=== PATIENT | male | born 1940 | race Caucasian/White ===

== ENCOUNTER → 2022-07-02 12:51 | Outpatient (CLI) | payer MEDICARE, OTHER, SELFPAY ==
--- NOTE | 2022-07-02 12:56 | DI.US.S_ITS ---
PROCEDURE: US RENAL COMPLETE INDICATIONS: Gross hematuria TECHNIQUE: Real-time scanning was performed of the kidneys and bladder, with image documentation. COMPARISON: None. FINDINGS: Kidneys: Kidneys are normal in size. Right kidney measures 12.8 cm long; left kidney measures 13.3 cm long. Right renal cortical thickness is 2.0 cm; left renal cortical thickness is 1.8 cm. Renal cortical echotexture is normal. No hydronephrosis or nephrolithiasis. No suspicious solid mass lesions. Bladder: Pre-void bladder volume is 82 mL. Post-void residual is 0 mL. Pre-void images demonstrate no intraluminal masses or stones. On pre-void images, bilateral ureteral jets are noted with color Doppler interrogation. (Of note, ureteral jets may not be detectable in up to 25% of cases due to insufficient differences in specific gravity between ureteral and bladder urine). Miscellaneous: No free pelvic fluid. IMPRESSION: No hydronephrosis or nephrolithiasis. No postvoid residual. Dictated by: Sofia Rosales M.D. on 07/02/2022 at 14:58 Approved by: Sofia Rosales M.D. on 07/02/2022 at 14:58
== END ==
PROVIDERS: PCP Family Medicine; Referring Provider Nurse Practitioner Family; Visit Provider Nurse Practitioner Family
DX: R31.0 Gross hematuria (principal)
CPT/HCPCS: 76770

== ENCOUNTER → 2022-08-07 13:16 | Outpatient (CLI) | payer MEDICARE, OTHER, SELFPAY ==
--- NOTE | 2022-08-07 | DI.CT.S_ITS ---
PROCEDURE: CT IVP A/P W/WO INDICATIONS: GROSS HEMATURA TECHNIQUE: Optional 5 mm thick noncontrast images acquired from the diaphragm to the symphysis pubis. After the administration of intravenous contrast, 5 mm thick images acquired from the diaphragm to the symphysis pubis after a 10-minute delay. 2 mm thick coronal and sagittal reformats were then performed of the kidneys and ureters. For radiation dose reduction, the following was used: automated exposure control, adjustment of mA and/or kV according to patient size. COMPARISON: [facility], CT, CT ABD PELVIS W CON, 02/27/2016, 11:16. FINDINGS: Image quality: Excellent. Lung bases: Lung bases are clear. The heart is enlarged. Pacemaker lead is noted. Urinary system: Both kidneys are normal in size, without hydronephrosis or nephrolithiasis on pre-contrast images. No perinephric fat stranding. There is normal bilateral renal enhancement. Renal calyces appear normal in morphology when filled with contrast. Opacified portions of both ureters demonstrate normal caliber. Bladder is mildly underdistended even on delayed images. There is mild fat stranding anterior to the bladder. No calcified bladder stones. Other solid organs: Suspected subtle nodularity of the liver surface. A recanalized periumbilical vein is noted. Gallbladder is filled with sludge and multiple calculi. There appears to be mild gallbladder wall thickening and mild pericholecystic fluid. Biliary system is non dilated. Pancreas enhances normally. Spleen is normal in size. A 1 cm hypoattenuating lesion in the spleen is most likely benign. Mild nodular thickening of the adrenals without a definite focal adrenal nodule. Peritoneum and bowel: Moderate stool is seen in the colon and rectum. Numerous diverticula are seen throughout the colon without signs of acute diverticulitis. Small bowel loops are unremarkable. No pneumoperitoneum. Trace ascites is seen adjacent to the liver and in the pelvic cul-de-sac. Nodes and vessels: No retroperitoneal or mesenteric adenopathy by size criteria. Aorta and inferior vena cava are normal in size. Abdominal wall: No ventral hernias. Pelvis: Fiducial markers are noted in the prostate. No pathologic free pelvic fluid. No inguinal hernias or adenopathy. Bones: No suspicious bony lesions. No vertebral body compression fractures. Multilevel degenerative changes are seen in the spine as well as the sacroiliac joints, hips, and pubic symphysis. Old healed right-sided rib fractures. IMPRESSION: 1. No nephrolithiasis or hydronephrosis. No urothelial mass. 2. Subtle fat stranding adjacent to the anterior bladder is nonspecific but could indicate mild cystitis. 3. Cholelithiasis with mild bladder wall thickening and small amount of pericholecystic fluid, possibly related to liver disease but acute sulcal status is not excluded. Recommend correlation with clinical findings and laboratory values. 4. Subtle nodularity of the liver surface is suspicious for cirrhosis. Small recanalized periumbilical vein is present. There is trace abdominal ascites. 5. Extensive colonic diverticulosis without signs of acute diverticulitis. Moderate colonic stool. 6. Cardiomegaly. Approved by: Willy Cervantes M.D. on 08/07/2022 at 20:41
[2022-08-07 13:40] LABS: Estimated Glomerular Filt Rate > 60 mL/min (>60)
== END ==
PROVIDERS: Radiology Diagnostic Radiology; PCP Family Medicine; Referring Provider Urology; Visit Provider Urology
DX: R31.0 Gross hematuria (principal); R25.1 Tremor, unspecified; I51.7 Cardiomegaly; K80.20 Calculus of gallbladder without cholecystitis without obstruction; K57.90 Diverticulosis of intestine, part unspecified, without perforation or abscess without bleeding; Z87.898 Personal history of other specified conditions
CPT/HCPCS: 36415; 74178; 82565; Q9967

== ENCOUNTER → 2024-04-22 13:17 | Outpatient (CLI) | payer MEDICARE, OTHER, SELFPAY ==
--- NOTE | 2024-04-22 13:20 | DI.ECHO.S_ITS ---
[facility] : : [id number] : : [place] : : [id number] : : Phone: [phone] Echocardiogram Report + + :Name: HUANG BROWNE Study Date: 04/22/2024 Height: 70 in : :[facility] ReadingLocation: Weight: 210 lb : : Gender: Male BSA: 2.1 m2 : :: 1940 Age: 83 yrs BP: 136/84 mmHg: :Reason For Study: CHRONIC ATRIAL FIBRILLATION : :Ordering Physician: TWYLA ESCALANTE : :E Performed By: Shyanne Arceo : :Referring: TWYLA ESCALANTE E : + + Interpretation Summary The ejection fraction is estimated to be 60-65%. Both atria have markedly increased in size since the prior echo exam. There is mild aortic valve sclerosis. The right ventricular systolic pressure is estimated to be at least 41 mmHg based on an estimated right atrial pressure of 8 mm Hg. Procedure: A two-dimensional transthoracic echocardiogram with color flow and Doppler was performed. The study quality was technically adequate. There is no prior echocardiogram noted for this patient. The heart rate ranged between 62-74 bpm during the study. Left Ventricle: The left ventricle is normal in size. There is normal left ventricular wall thickness. The ejection fraction is estimated to be 60-65%. Left ventricular wall motion is normal. Diastolic function could not be accurately assessed due to paced rhythm. Right Ventricle: The right ventricle is moderately dilated. Atria: Both atria have markedly increased in size since the prior echo exam. There is no Doppler evidence for an interatrial shunt. Mitral Valve: There is mild mitral annular calcification. The mitral valve leaflets appear moderately thickened, but open well. There is mild to moderate mitral regurgitation. Aortic Valve: The aortic valve is mildly calcified. There is mildly reduced leaflet mobility. There is mild aortic valve sclerosis. No aortic regurgitation is present. Tricuspid Valve: The tricuspid valve leaflets are thin and pliable. There is moderate tricuspid regurgitation. The right ventricular systolic pressure is estimated to be at least 41 mmHg based on an estimated right atrial pressure of 8 mm Hg. Pulmonic Valve: The pulmonic valve leaflets are thin and pliable; valve motion is normal. There is no pulmonic valvular regurgitation. Great Vessels: The aortic root is normal size. The dimensions of the ascending aorta are normal. The IVC is dilated (diameter is greater than 2.1 cm) yet it collapses greater than 50% with a sniff. This suggests a right atrial pressure of 8 mm Hg. Pericardium/ Pleura There is no pericardial effusion. There is no pleural effusion. MMode/2D Measurements & Calculations LVIDd: 5.0 cm LVOT diam: 2.4 cm LVIDs: 3.0 cm Ao root diam: 3.4 cm FS: 38.7 % asc Aorta Diam: 3.7 cm EPSS: 0.72 cm Ao Arch Diam (Prox Trans): 2.9 cm IVSd: 1.1 cm LVPWd: 0.90 cm LV bazzi. diameter/BSA (cm/m^2): 2.3 LV sys. diameter/BSA (cm/m^2): 1.4 LA A2 area: 54.1 cm2 RA long axis: 8.5 cm LA A4 area: 55.9 cm2 RA area: 45.5 cm2 LA length (vol): 9.3 cm RA vol: 207.4 ml LA vol: 277.1 ml RA : 97.3 ml/m2 LA vol index: 130.0 ml/m2 IVC diam: 3.3 cm RVD1 (basal): 5.3 cm RVD2 (mid): 3.6 cm TAPSE: 1.7 cm Doppler Measurements & Calculations Ao V2 max: 174.6 cm/sec LVOT Max Ruben: 84.0 cm/sec Ao V2 mean: 122.5 cm/sec LV V1 max P.8 mmHg Ao max P.9 mmHg LV V1 VTI: 18.1 cm Ao mean P.7 mmHg FELICIANO(I,D): 2.3 cm2 Ao V2 VTI: 35.0 cm FELICIANO(V,D): 2.1 cm2 sev ratio: 0.52 FELICIANO indexed to BSA (cm^2/m^2): 1.1 MV E max ruben: 125.3 cm/sec TR max ruben: 286.3 cm/sec Med Peak E' Ruben: 10.3 cm/sec TR max P.8 mmHg E/E' med: 12.2 PA V2 max: 73.6 cm/sec Lat Peak E' Ruben: 9.9 cm/sec PA V2 mean: 55.7 cm/sec E/E' lat: 12.6 PA mean P.3 mmHg E/e' average: 12.4 MVA(VTI): 2.6 cm2 MV V2 mean: 60.6 cm/sec SV(LVOT): 80.6 ml MV mean P.1 mmHg MV V2 VTI: 30.7 cm Reading Physician:[id number] PM
== END ==
PROVIDERS: PCP Family Medicine; Referring Provider Family Medicine; Visit Provider Family Medicine
DX: I48.20 Chronic atrial fibrillation, unspecified (principal); Z79.01 Long term (current) use of anticoagulants; I50.22 Chronic systolic (congestive) heart failure; I49.5 Sick sinus syndrome; Z95.0 Presence of cardiac pacemaker; I11.0 Hypertensive heart disease with heart failure; I35.8 Other nonrheumatic aortic valve disorders
CPT/HCPCS: 93306